=== PATIENT | male | born 1950 | race Caucasian/White ===

== ENCOUNTER → 2016-08-24 | Day surgery (SDC) | payer MEDICARE ==
--- NOTE | 2016-08-23 08:51 | SC.ANESEVA ---
Anesthesia Eval & Plan ([facility]) - Medications/Allergies Allergies: Allergies No Known Allergies Allergy (Unverified 08/07/11 02:10) Current Medication List: Reviewed - Focused Physical Exam NPO since: Since after Midnight Mallampati: Class I Thyromental Distance: Greater than 3 Neck: Full Range of Motion Dental: Normal - no significant findings Cardiovascular/Chest: Normal (RRR no mumurs or rubs.) Respiratory: Lungs clear. negative: Wheezing Any problems with anesthesia, including nausea and vomiting?: No Any relatives with a history of Malignant Hyperthermia?: No Other: Diagnoses SEBACEOUS CYST (08/24/16) Allergies Allergy/AdvReac Type Severity Reaction Status Date / Time No Known Allergies Allergy Unverified 08/07/11 02:10 - Anesthetic Plan Anesthesia Type: General ASA Class: 3
[2016-08-23 12:56] VITALS: BMI 38.2
[~2016-08-24] MED LIST: BUPIVACAINE 0.25%-EPINEPHRINE 1:200,000 30 ML INF ONE; DEXAMETHASONE 4 MG/ML VIAL IV PRN; DEXAMETHASONE 4 MG/ML VIAL ONE; DIAZEPAM 5 MG TAB PO PRN; FENTANYL 100 MCG/2 ML VIAL IV PRN; FENTANYL 100 MCG/2 ML VIAL ONE; HYDROCODONE 5 MG/ACETAMIN 325 MG TAB PO PRN; KETOROLAC TROMETH 30 MG/ML VIAL IV PRN; KETOROLAC TROMETH 30 MG/ML VIAL ONE; LABETALOL 20 MG/4 ML SYRINGE IV PRN; LR 1,000 ML IV ONE; LR 1,000 ML IV SCH; MIDAZOLAM 2 MG/2 ML VIAL ONE; NS 1,000 ML IV SCH; NS 250 ML IV SCH; ONDANSETRON HCL 4 MG/2 ML VIAL IV PRN; ONDANSETRON HCL 4 MG/2 ML VIAL ONE; PROPOFOL 200 MG/20 ML VIAL IV ONE; SCOPOLAMINE TRANSDERMAL PATCH TOP PRN; hydrALAZINE 20 MG/ML VIAL IV PRN
--- NOTE | 2016-08-24 11:09 | SC.ANESEVA ---
Anesthesia Eval & Plan ([facility]) - Providers Stated Procedure: removing a cyst from my back Surgeon:: Eron Carlos - Medications/Allergies Allergies: Allergies No Known Allergies Allergy (Unverified 08/07/11 02:10) Home Medications: Home Medication List Atorvastatin Calcium [Lipitor] 80 mg PO DAILY 08/23/16 [History] Cilostazol [Pletal] 100 mg PO DAILY 08/23/16 [History] Famotidine [Pepcid] 40 mg PO BID 08/23/16 [History] Glipizide [Glipizide ER] 10 mg PO DAILY 08/23/16 [History] Levothyroxine Sodium [Synthroid] 25 mcg PO DAILY 08/23/16 [History] Metoprolol Tartrate [Lopressor] 25 mg PO DAILY 08/23/16 [History] Current Medication List: Reviewed - Focused Physical Exam NPO since: Since after Midnight Mallampati: Class II Thyromental Distance: Greater than 3 Neck: Limited Range of Motion Dental: Normal - no significant findings Any problems with anesthesia, including nausea and vomiting?: No Any relatives with a history of Malignant Hyperthermia?: No Other: Diagnoses SEBACEOUS CYST (08/24/16) Allergies Allergy/AdvReac Type Severity Reaction Status Date / Time No Known Allergies Allergy Unverified 08/07/11 02:10 Home Medications Medication Instructions Recorded Last Taken Type Atorvastatin Calcium [Lipitor] 80 mg PO DAILY 08/23/16 Unknown History Cilostazol [Pletal] 100 mg PO DAILY 08/23/16 Unknown History Famotidine [Pepcid] 40 mg PO BID 08/23/16 Unknown History Glipizide [Glipizide ER] 10 mg PO DAILY 08/23/16 Unknown History Levothyroxine Sodium [Synthroid] 25 mcg PO DAILY 08/23/16 Unknown History Metoprolol Tartrate [Lopressor] 25 mg PO DAILY 08/23/16 Unknown History Height and Weight Patient's height 5 ft 7 in Patient's weight 110.677 kg Weight (Calculated Kilograms) 110.677 BMI 38.2 - Anesthetic Plan Anesthesia Type: General ASA Class: 3 - Focused Review of Systems Cardiac History: Yes: Hx Hypertension, Hx Abnormal Cholesterol/Hyperlipidemia Gastrointestinal: Yes: Hx Gastroesophageal Reflux Disease Endocrine: Yes: Hx Non-Insulin Dependent Diabetes, Hx Hypothyroidism Smoking Status: Never smoker Surgical History: Yes: Appendectomy Other Surgical History: hemorrhoidectomy
--- NOTE | 2016-08-24 12:55 | HIMOPRPT ---
DATE OF PROCEDURE: 08/24/16 PREOPERATIVE DIAGNOSES: Large sebaceous cyst with chronic wound on back. POSTOPERATIVE DIAGNOSES: Same. PROCEDURES: Excision of 3.1 cm sebaceous cyst from back with 4 cm intermediate closure. SURGEON: Eron Carlos MD ANESTHESIA: General. COMPLICATIONS: None. ESTIMATED BLOOD LOSS: Minimal. ANTIBIOTICS: Preoperative antibiotics given. INDICATIONS: The patient is a pleasant 66-year-old male who had a sebaceous cyst drained 6 months earlier and had developed a chronic draining sinus. We evaluating felt he would benefit from having this excised explained the risks and benefits of this to him. He had understood and agreed was brought for the above-mentioned procedure. OPERATIVE NOTE: The patient was brought to the operating room placed on the operating table in the supine position. After adequate amount of general anesthesia he was positioned then prepped and draped in sterile manner. When given the okay by anesthesia after appropriate time-out an elliptical skin incision was made through the skin subcutaneous tissues was scalpel dissection. Bleeding was controlled Bovie cautery. Dissection was carried down to the fascia with Bovie cautery. The mass in sinus and wound was excised without any difficulties. We then went ahead created skin flaps superiorly and inferiorly so that we could close this large defect. At that point we irrigated the wound assured hemostasis and then brought the deep tissues together with 2 0 Vicryl sutures in interrupted manner. Skin clips were then used to bring the skin edges together. Dry sterile compression dressing was applied the patient was awoke and taken recover room in excellent condition with correct sponge counts and needle counts.
[2016-08-24 12:59] VITALS: TEMP 97.4
[2016-08-24 13:26] VITALS: BP 104/61; PULSE 71
--- NOTE | 2016-08-24 14:14 | SC.ANESPOS ---
Post-Anesthesia Note LOC: Fully Awake Post-Anesthesia Assessment: Awake, Returned to Baseline, Hemodynamically Stable , Pain Control Adequate Phase I & II Recovery Complete: Yes Apparent Anesthesia Complication: No : N - Vital Signs Blood Pressure: 104/61 Pulse: 71 Resp Rate: 16 O2 Sat: 98 Temp: 97.4 F
== END ==
LOC: CPSC 10:43
PROVIDERS: ATTEND Surgery
PROC: 0JB70ZZ Excision of Back Subcutaneous Tissue and Fascia, Open Approach (ICD-10-PCS; 2016-08-24)
PROC: 0JQ70ZZ Repair Back Subcutaneous Tissue and Fascia, Open Approach (ICD-10-PCS; principal; 2016-08-24 12:00)
DX: L72.3 Sebaceous cyst (principal); E11.9 Type 2 diabetes mellitus without complications; I10 Essential (primary) hypertension; Z79.84 Long term (current) use of oral hypoglycemic drugs; Z87.891 Personal history of nicotine dependence; E78.5 Hyperlipidemia, unspecified; E03.9 Hypothyroidism, unspecified; K21.9 Gastro-esophageal reflux disease without esophagitis; J44.9 Chronic obstructive pulmonary disease, unspecified; Z79.899 Other long term (current) drug therapy
CPT/HCPCS: 11404; 12032; 82962; J1100; J1885; J2250; J2405; J2704; J3010; J3490